=== PATIENT | female | born 1990 | race Caucasian/White ===

== ENCOUNTER 2017-03-05 18:50 | Emergency (ER) | payer SELFPAY ==
[~2017-03-05] VITALS: Ht 167.6 cm; Wt 85.0 kg
[2017-03-05 18:58] VITALS: BP 138/74; PULSE 84; RESP 15; TEMP 98.4; O2SAT 99
== END 2017-03-05 21:00 | disposition left against medical advice (07) ==
LOC: NED 18:50
DX: O20.0 Threatened abortion (principal); Z53.21 Procedure and treatment not carried out due to patient leaving prior to being seen by health care provider
CPT/HCPCS: 99281

== ENCOUNTER 2017-10-09 02:48 | Emergency (ER) | payer MEDICAID ==
[~2017-10-09] VITALS: Ht 160 cm; Wt 80.0 kg
[2017-10-09 02:57] VITALS: BP 144/75; PULSE 138; RESP 18; TEMP 98.2; O2SAT 100
--- NOTE | 2017-10-09 04:58 | PD ---
HPI Chief Complaint: Mobile Disc Jockey Problem/Complaint Time Seen by Provider: 04:10 Travel History International Travel<30 days: No Contact w/Intl Traveler<30days: No Traveled to known affect area: No History of Present Illness HPI 27-year-old Ab1, at 7 weeks by dates, presents today with limits of lower abdominal pain with associated spotting. Patient states she is experiencing lower abdominal pain in the middle 1-1/2 days. She denies any fevers, chills. She denies any dysuria, urgency, frequency. Patient states the pain radiates to her lower back bilaterally. She states that last night/early this morning when she went to the bathroom she noted some spotting. There is no passage of tissue. There are no other complaints at the time of my examination. The patient was unsure of her blood type however did produce a blood card that showed that she was O-. PFSH Past Medical History Diminished Hearing: No Immunizations Current: Yes Seizures: Yes ?: Miscarriage: 1 Past Surgical History Oral Surgery: Yes (WISMANNY) Social History Alcohol Use: No Tobacco Use: No Substance Use: No Allergies-Medications (Allergen,Severity, Reaction): Coded Allergies: No Known Allergies (Unverified , 03/05/17) Reported Meds & Prescriptions Reported Meds & Active Scripts Active No Active Prescriptions or Reported Medications Review of Systems Except as stated in HPI: all other systems reviewed are Neg General / Constitutional: No: Fever, Chills HENT: No: Headaches, Lightheadedness Cardiovascular: No: Chest Pain or Discomfort, Palpitations Respiratory: No: Cough, Shortness of Breath Gastrointestinal: No: Nausea, Vomiting, Abdominal Pain Genitourinary: Positive: Pelvic Pain, Vaginal Bleeding (Spotting), No: Frequency, Dysuria, Discharge Musculoskeletal: Positive: Pain (Pain radiating from her), No: Weakness ( pelvis around to her back.) Neurologic: No: Weakness, Dizziness, Headache Physical Exam Narrative GENERAL: Well-developed well-nourished female in no acute respiratory distress. SKIN: Focused skin assessment warm/dry. HEAD: Atraumatic. Normocephalic. EYES: Pupils equal and round. No scleral icterus. No injection or drainage. ENT: No nasal bleeding or discharge. Mucous membranes pink and moist. GASTROINTESTINAL: Abdomen soft, non-tender, nondistended. Objective suprapubic discomfort. No rebound no guarding. GENITOURINARY: In the presence of the nurse. Normal external genitalia without lesions or erythema. MUSCULOSKELETAL: No obvious deformities. No clubbing. No cyanosis. No edema. NEUROLOGICAL: Awake and alert. No obvious cranial nerve deficits. Motor grossly within normal limits. Normal speech. PSYCHIATRIC: Appropriate mood and affect; insight and judgment normal. Data Data Last Documented VS Vital Signs Date Time Temp Pulse Resp B/P (MAP) Pulse Ox O2 Delivery O2 Flow Rate FiO2 10/09/17 02:57 98.2 138 18 144/75 (98) 100 Room Air Orders Orders Complete Blood Count With Diff (10/09/17 04:17) Urinalysis - C+S If Indicated (10/09/17 04:17) Iv Access Insert/Monitor (10/09/17 04:17) Ecg Monitoring (10/09/17 04:17) Oximetry (10/09/17 04:17) Ed Urine Pregnancytest Poc (10/09/17 04:17) Beta Hcg (Quant/Titer) (10/09/17 05:49) Us Pelvis (Ques Pr/Ect)W Trans (10/09/17 06:34) Rhogam Only (10/09/17 07:17) Labs Laboratory Tests Test 10/09/17 04:45 10/09/17 05:55 White Blood Count 10.9 TH/MM3 Red Blood Count 4.27 MIL/MM3 Hemoglobin 12.9 GM/DL Hematocrit 38.3 % Mean Corpuscular Volume 89.6 FL Mean Corpuscular Hemoglobin 30.3 PG Mean Corpuscular Hemoglobin Concent 33.8 % Red Cell Distribution Width 13.4 % Platelet Count 364 TH/MM3 Mean Platelet Volume 7.6 FL Neutrophils (%) (Auto) 70.7 % Lymphocytes (%) (Auto) 21.8 % Monocytes (%) (Auto) 6.5 % Eosinophils (%) (Auto) 0.5 % Basophils (%) (Auto) 0.5 % Neutrophils # (Auto) 7.7 TH/MM3 Lymphocytes # (Auto) 2.4 TH/MM3 Monocytes # (Auto) 0.7 TH/MM3 Eosinophils # (Auto) 0.1 TH/MM3 Basophils # (Auto) 0.1 TH/MM3 CBC Comment DIFF FINAL Differential Comment Urine Color LIGHT-YELLOW Urine Turbidity CLEAR Urine pH 6.0 Urine Specific [place] 1.003 Urine Protein NEG mg/dL Urine Glucose (UA) NEG mg/dL Urine Ketones NEG mg/dL Urine Occult Blood SMALL Urine Nitrite NEG Urine Bilirubin NEG Urine Urobilinogen LESS THAN 2.0 MG/DL Urine Leukocyte Esterase NEG Urine RBC 1 /hpf Urine WBC 1 /hpf Urine Squamous Epithelial Cells 1 /hpf Microscopic Urinalysis Comment CULT NOT INDICATED Human Chorionic Gonadotropin, Quant 580 MIU/ML MDM Medical Decision Making Medical Screen Exam Complete: Yes Emergency Medical Condition: Yes Differential Diagnosis Threatened miscarriage versus complete miscarriage versus ectopic Narrative Course 27-year-old Ab1 who is at 7 weeks by dates, presents today with complaints of pelvic pain and vaginal spotting. The patient cervical loss is closed to fingertip. There is no adnexal masses on bimanual exam. Beta-hCG is 580. The patient is Rh-. RhoGam has been ordered. Pelvic ultrasound is pending at this time. The case will be signed out to the oncoming physician and disposition will be pending the ultrasound. Diagnosis Primary Impression: Abdominal pain in Additional Impressions: Vaginal spotting Rh- Scripts No Active Prescriptions or Reported Meds Mikey Longoria MD Oct 09, 2017 04:58
[2017-10-09 05:14] LABS: BILIRUBIN, URINE NEG (NEG); BLOOD, URINE SMALL (NEG); GLUCOSE,URINE NEG (NEG); KETONE, URINE NEG (NEG); NITRITE,URINE NEG (NEG); SQUAMOUS EPITHELIAL CELL URINE 1 /hpf (0-5); URINE COLOR LIGHT-YELLOW (YELLW/STRAW); URINE LEUKOCYTE ESTERASE NEG (NEG)
[2017-10-09 05:28] LABS: AUTOMATED NEUTROPHIL # 7.7 TH/MM3 (1.8-7.7); BASOPHIL # 0.1 TH/MM3 (0-0.2); BASOPHIL % 0.5 % (0.0-2.0); EOSINOPHIL # 0.1 TH/MM3 (0-0.4); EOSINOPHIL % 0.5 % (0.0-4.0); HEMATOCRIT 38.3 % (35.0-46.0); HEMOGLOBIN 12.9 GM/DL (11.6-15.3); LYMPH % 21.8 % (9.0-44.0); LYMPHOCYTE # 2.4 TH/MM3 (1.0-4.8); MEAN CELL VOLUME 89.6 FL (80.0-100.0); MEAN CORPUSCULAR HEMOGLOBIN 30.3 PG (27.0-34.0); MEAN CORPUSCULAR HGB CONC 33.8 % (32.0-36.0); MEAN PLATELET VOLUME 7.6 FL (7.0-11.0); MONO % 6.5 % (0.0-8.0); MONOCYTE # 0.7 TH/MM3 (0-0.9); NEUT % 70.7 % (16.0-70.0); PLATELET COUNT 364 TH/MM3 (150-450); RED BLOOD COUNT 4.27 MIL/MM3 (4.00-5.30); RED CELL DISTRIBUTION WIDTH 13.4 % (11.6-17.2); WHITE BLOOD COUNT 10.9 TH/MM3 (4.0-11.0)
[2017-10-09 08:09] VITALS: BP 144/71; PULSE 111; RESP 18; O2SAT 99
--- NOTE | 2017-10-09 08:10 | RADRPT ---
EXAM DATE/TIME: 10/09/2017 07:26 [place] COMPARISON: No previous studies available for comparison. INDICATIONS : Pelvic cramping and spotting. LAB(S): Beta-hC MEDICAL HISTORY : . Seizures. SURGICAL HISTORY : [place] teeth. ENCOUNTER: Initial ACUITY: 1 day PAIN SCORE: 6/10 LOCATION: Bilateral pelvis MEASUREMENTS: UTERUS: 8.2 x 6.6 x 4.6 cm ENDOMETRIAL STRIPE: 14 mm RIGHT OVARY: 2.9 x 1.9 x 1.4 cm LEFT OVARY: 3.5 x 2.1 x 2.3 cm FREE FLUID: Yes cul de sac CROWN RUMP LENGTH: 0.2 cm = OOR WKS DAYS FHR: Nonvisualized BPM FINDINGS: UTERUS: The uterus is retroverted. A gestational sac containing a pole is identified. Yolk sac was iden tified. Gestation is too early for dating. heart rate could not be documented. A heterogeneous hypoechoic area is identified along the fundal margin of the gestational sac which measures 1.8 x 2.2 x 1.3 cm. RIGHT OVARY: Ovary contains no mass or significant cystic lesion. LEFT OVARY: The left ovary contains a complex cyst measuring 12 mm. MISCELLANEOUS: Free fluid is identified in the cul-de-sac. CONCLUSION: 1. Intrauterine gestational sac with pole which is too early for dating. 2. Suspected subchorionic hemorrhage along the fundal margin of the gestational sac. 3. 12 mm complex left ovarian cyst characteristic of a corpus luteal cyst. Chance Mullen MD on October 09, 2017 at 8:02 Board Certified Radiologist. This report was verified electronically.
--- NOTE | 2017-10-09 10:06 | PD ---
Physical Exam Narrative Patient signed out to me by Dr. Longoria. Please see his documentation for complete details. Briefly, patient is a 27-year-old female, last menstrual period first week in August, who comes in complaining of vaginal spotting. Pelvic exam performed by Dr. Longoria revealed os to be closed. Data Data Last Documented VS Vital Signs Date Time Temp Pulse Resp B/P (MAP) Pulse Ox O2 Delivery O2 Flow Rate FiO2 10/09/17 08:09 111 18 144/71 (95) 99 Room Air 10/09/17 02:57 98.2 Orders Orders Complete Blood Count With Diff (10/09/17 04:17) Urinalysis - C+S If Indicated (10/09/17 04:17) Iv Access Insert/Monitor (10/09/17 04:17) Ecg Monitoring (10/09/17 04:17) Oximetry (10/09/17 04:17) Ed Urine Pregnancytest Poc (10/09/17 04:17) Beta Hcg (Quant/Titer) (10/09/17 05:49) Us Pelvis (Ques Pr/Ect)W Trans (10/09/17 06:34) Rhogam Only (10/09/17 07:17) Type And Screen (10/09/17 08:20) Labs Laboratory Tests Test 10/09/17 04:45 10/09/17 05:55 White Blood Count 10.9 TH/MM3 Red Blood Count 4.27 MIL/MM3 Hemoglobin 12.9 GM/DL Hematocrit 38.3 % Mean Corpuscular Volume 89.6 FL Mean Corpuscular Hemoglobin 30.3 PG Mean Corpuscular Hemoglobin Concent 33.8 % Red Cell Distribution Width 13.4 % Platelet Count 364 TH/MM3 Mean Platelet Volume 7.6 FL Neutrophils (%) (Auto) 70.7 % Lymphocytes (%) (Auto) 21.8 % Monocytes (%) (Auto) 6.5 % Eosinophils (%) (Auto) 0.5 % Basophils (%) (Auto) 0.5 % Neutrophils # (Auto) 7.7 TH/MM3 Lymphocytes # (Auto) 2.4 TH/MM3 Monocytes # (Auto) 0.7 TH/MM3 Eosinophils # (Auto) 0.1 TH/MM3 Basophils # (Auto) 0.1 TH/MM3 CBC Comment DIFF FINAL Differential Comment Urine Color LIGHT-YELLOW Urine Turbidity CLEAR Urine pH 6.0 Urine Specific [place] 1.003 Urine Protein NEG mg/dL Urine Glucose (UA) NEG mg/dL Urine Ketones NEG mg/dL Urine Occult Blood SMALL Urine Nitrite NEG Urine Bilirubin NEG Urine Urobilinogen LESS THAN 2.0 MG/DL Urine Leukocyte Esterase NEG Urine RBC 1 /hpf Urine WBC 1 /hpf Urine Squamous Epithelial Cells 1 /hpf Microscopic Urinalysis Comment CULT NOT INDICATED Human Chorionic Gonadotropin, Quant 580 MIU/ML MDM Supervised Visit with ANATOLY: No Narrative Course Labs show a beta hCG of 580. Ultrasound performed shows a gestational sac and pole, possible early . Patient is Rh-. She is given RhoGAM. She is advised to return in 2 days for repeat testing, to see if the is progressing. Advised to return any time for any worsening bleeding or any worsening symptoms. Diagnosis Primary Impression: Threatened Referrals: [facility] call for appointment Patient Instructions: General Instructions, Threatened Miscarriage (ED) Additional Instruction: Today your beta hCG was 580. He should follow up in 2 days to have this repeated and make sure it is going up appropriately. Return any time for any worsening symptoms. Practice pelvic rest for the next 2 weeks. Follow-up with an OB. Scripts No Active Prescriptions or Reported Meds Disposition: 01 DISCHARGE HOME Condition: Stable Glenna Novak MD Oct 09, 2017 10:06
[2017-10-09 10:26] VITALS: BP 148/74; PULSE 93; RESP 18; TEMP 97.9; O2SAT 99
== END 2017-10-09 10:53 | disposition home or self-care (01) ==
LOC: NEPE 02:48
DX: O20.0 Threatened abortion (principal); Z3A.01 Less than 8 weeks gestation of pregnancy
CPT/HCPCS: 76700; 76817; 81001; 84702; 84703; 85025; 86850; 86900; 86901; 90384; 99284; J2790